=== PATIENT | female | born 1950 | race Caucasian/White ===

== ENCOUNTER 2023-02-24 15:54 | Inpatient (IN) ==
--- NOTE | 2023-02-24 17:30 | XRay Report ---
XR chest 1V not portable CLINICAL HISTORY: Chest pain, nonspecific COMPARISON STUDY: No previous studies for comparison. FINDINGS: No pneumothorax or pleural effusion is noted. Linear left basilar densities represent atele ctasis. Moderate cardiomegaly is noted. No evidence for pulmonary edema. Moderate to large hiatal her odette is present. IMPRESSION: 1. No acute cardiopulmonary findings. 2. Hiatal hernia. ACT 112: Negative or not required by law. Electronically signed by: Jagjit Cat M.D. 02/24/2023 5:29 PM
[2023-02-24 18:18] LABS: Basophils # (auto) 0.03 K/uL (0-0.2); Basophils % (auto) 0.3 %; Eosinophils # (auto) 0.03 K/uL (0-0.50); Eosinophils % (auto) 0.3 %; Hematocrit (blood only) 44.1 % (37.0-47.0); Hemoglobin 14.8 g/dl (12.0-16.0); Immature Granulocytes # (auto) 0.02 K/uL (0.01-0.20); Immature Granulocytes % (auto) 0.2 %; Lymphocytes # (auto) 2.45 K/uL (1.2-3.4); Lymphocytes % (auto) 28.5 %; Mean Corpuscular Hemoglobin 29.5 pg (25.0-34.0); Mean Corpuscular Hgb Conc 33.6 g/dL (32.0-36.0); Mean Corpuscular Volume 87.8 fL (80.0-100.0); Mean Platelet Volume 11.3 fL (9.4-12.4); Monocytes # (auto) 0.67 K/uL (0.11-0.59); Monocytes % (auto) 7.8 %; Neutrophils # (auto) 5.41 K/uL (1.40-6.50); Neutrophils % (auto) 62.9 %; Platelet Count 262 K/uL (130-400); RDW Coefficient of Variation 13.1 % (11.5-14.5); Red Blood Count 5.02 M/uL (4.20-5.40); White Blood Count 8.61 K/ul (4.8-10.8)
[2023-02-24 18:23] LABS: Albumin Globulin Ratio 1.5 (0.9-2); Albumin Level 4.5 gm/dl (3.4-5.0); BUN Creatinine Ratio 19.7 (10-20); Bilirubin,Total 0.4 mg/dl (0.2-1.0); Creatinine Clr Calc Pharmacy 64.5 ml/min; Est GFR (African American) 104.2 ml/min; Est GFR (Non-African American) 89.9 ml/min; Globulin 3.1 gm/dl (2.5-4.0); Potassium 3.8 mmol/L (3.5-5.1); Total Protein 7.6 gm/dl (6.0-8.3)
--- NOTE | 2023-02-24 18:25 | Emergency Department Note ---
Impression & Plan Chest pain ED Provider Note INFORMANT: Patient ED PROVIDER(S): Cedrick Guerra DO CHIEF COMPLAINT: Chest pressure PLAN: Disposition: Home Outpatient prescription management: none Discussion with: Cardiology, Dr. Grewal and the hospitalist MEDICAL DECISION MAKING: This is a 72-year-old female who presents to the ED with a chief complaint of chest pressure. The patient states that she has had the symptoms for a couple of weeks intermittently. She was at [facility] and admitted there for a short time and discharged to follow-up with a patient case manager in [place] at [facility]. She was thought to have angina and was discharged on nitroglycerin. The patient states that she sometimes gets discomfort at rest and sometimes with heavy exertion. Today she used the nitroglycerin given to her at her recent hospitalization twice because of chest discomfort. She states that it seems to help a little. She is concerned about angina. She does state that she has an appointment on March 14 with her [facility] patient case manager. She has taken some leisurely walks which did not elicit the discomfort. She has an appointment to see her PCP in about a week. The patient has additional complaints at this time. Exam is normal. Lungs are clear. Heart regular rate and rhythm. No pedal edema. No calf tenderness. No associated shortness of breath, fevers or recent illness. The patient's CBC did not show anemia or leukocytosis. Chemistry panel showed no electrolyte abnormality. Troponin was negative for myocardial infarction. Chest x-ray was negative for pneumonia. EKG shows a sinus rhythm without acute ischemic changes. Triage Nursing notes reviewed. Vital Signs: reviewed Prior /Outside records reviewed: none Differential diagnosis: The differential that was considered includes acute myocardial infarction, acute coronary syndrome Diagnostics, as interpreted by me: 12 lead ECG: NSR rate of 60. No ST elevation. No PVCs. Normal QTc. Cardiac Monitoring ordered: Sinus rhythm in the 60s. Medical decision rules: none Imaging studies: Chest x-ray: No acute disease Procedures: none. Critical care: none. HPI: See MDM above. PAST MEDICAL HISTORY: See Below PAST SURGICAL HISTORY: See Below SOCIAL HISTORY: See Below HOME MEDICATIONS: See Below ALLERGIES: See Below VITALS: See Below PHYSICAL EXAMINATION: See MDM for positive findings otherwise unremarkable. CONSTITUTIONAL/VITAL SIGNS: Reviewed GENERAL:done as appropriate INTEGUMENTARY: done as appropriate HEAD: done as appropriate EYES: done as appropriate RESPIRATORY: done as appropriate CARDIOVASCULAR:done as appropriate GI/ABDOMEN:done as appropriate EXTREMITIES: done as appropriate NEUROLOGICAL: done as appropriate PSYCHIATRIC:done as appropriate MUSCULOSKELETAL:done as appropriate TRIAGE NURSING DOCUMENTATION REVIEWED. Past Med/Surg History Social History Feels Safe at Home: Yes Results & Data (ED) Vital Signs Vital Signs - 24 hr 02/24/23 15:57 02/24/23 17:49 02/24/23 17:57 Temperature 36.8 C Temperature Source Temporal Artery Scan Pulse Rate 71 60 56 L Respiratory Rate 18 18 Blood Pressure 174/72 H 180/71 H Blood Pressure Mean 106 107 Pulse Oximetry 98 97 Oxygen Delivery Method Room Air Sepsis Recent Fever Within 48 Hours No Sepsis New/Unexplained Change in Mental Status No Sepsis Action Taken by Nursing No Action Required Laboratory Data 02/24/23 17:52 02/24/23 17:52 Lab Results 02/24/23 02/24/23 02/24/23 Range/Units 17:52 17:52 17:52 WBC 8.61 (4.8-10.8) K/ul RBC 5.02 (4.20-5.40) M/uL Hgb 14.8 (12.0-16.0) g/dl Hct 44.1 (37.0-47.0) % MCV 87.8 (80.0-100.0) fL MCH 29.5 (25.0-34.0) pg MCHC 33.6 (32.0-36.0) g/dL RDW Std Deviation 42.0 (36.4-46.3) fL RDW Coeff of Luis 13.1 (11.5-14.5) % Plt Count 262 (130-400) K/uL MPV 11.3 (9.4-12.4) fL Immature Gran % (Auto) 0.2 % Neut % (Auto) 62.9 % Lymph % (Auto) 28.5 % Vilas % (Auto) 7.8 % Eos % (Auto) 0.3 % Baso % (Auto) 0.3 % Neut # (Auto) 5.41 (1.40-6.50) K/uL Lymph # (Auto) 2.45 (1.2-3.4) K/uL Vil[place] # (Auto) 0.67 H (0.11-0.59) K/uL Eos # (Auto) 0.03 (0-0.50) K/uL Baso # (Auto) 0.03 (0-0.2) K/uL Immature Gran # (Auto) 0.02 (0.01-0.20) K/uL PT 10.9 (9.0-12.0) Seconds INR 1.0 (0.9-1.1) APTT 25.1 (21.0-31.0) Seconds PTT Ratio 0.9 Sodium 140 (136-145) mmol/L Potassium 3.8 (3.5-5.1) mmol/L Chloride 104 (98-107) mmol/L Carbon Dioxide 27 (21-32) mmol/L Anion Gap 9 (3-11) BUN 12 (6-23) mg/dl Creatinine 0.61 (0.6-1.2) mg/dl Est Cr Clr Drug Dosing 64.5 ml/min Est GFR ( Amer) 104.2 ml/min Est GFR (Non-Af Amer) 89.9 ml/min BUN/Creatinine Ratio 19.7 (10-20) Glucose 96 (70-99(Fasting)) mg/dl Calcium 10.0 (8.6-10.3) mg/dl Total Bilirubin 0.4 (0.2-1.0) mg/dl AST 12 L (13-39) U/L ALT 13 (7-52) U/L Alkaline Phosphatase 54 (34-104) U/L Troponin I High Sens 3.0 (0-14) pg/ml Total Protein 7.6 (6.0-8.3) gm/dl Albumin 4.5 (3.4-5.0) gm/dl Globulin 3.1 (2.5-4.0) gm/dl Albumin/Globulin Ratio 1.5 (0.9-2) Imaging Data Radiologist's Impression: Chest X-Ray 02/24/23 16:02 XR chest 1V not portable CLINICAL HISTORY: Chest pain, nonspecific COMPARISON STUDY: No previous studies for comparison. FINDINGS: No pneumothorax or pleural effusion is noted. Linear left basilar densities represent atelectasis. Moderate cardiomegaly is noted. No evidence for pulmonary edema. Moderate to large hiatal hernia is present. IMPRESSION: 1. No acute cardiopulmonary findings. 2. Hiatal hernia. ACT 112: Negative or not required by law. Electronically signed by: Jagjit Cat M.D. 02/24/2023 5:29 PM Discharge Plan Visit Data Chief Complaint: Chest Pain Stated Complaint: CHEST PAINS ED Provider: Cedrick Guerra Discharge Problem: Chest pain Patient Disposition: Being Evaluated by Hospitalist Forms Stand Alone Forms: [facility] Referrals Referrals: PCP,NO [Physician] -
[2023-02-24 18:36] LABS: Partial Thromboplastin Ratio 0.9; Partial Thromboplastin Time 25.1 Seconds (21.0-31.0); Prothrombin Time 10.9 Seconds (9.0-12.0)
[2023-02-24] MEDS ORDERED: NITROGLYCERIN SL 0.4 MG/TAB TAB SL PRN (22:02)
[2023-02-24] MEDS ORDERED: POLYETHYLENE (MIRALAX) 17 GM PACK PO PRN (22:02)
[2023-02-24] MEDS ORDERED: ACETAMINOPHEN 325 MG TAB PO PRN (22:02)
--- NOTE | 2023-02-24 22:44 | History and Physical Report ---
DATE OF ADMISSION: 02/24/2023. CHIEF COMPLAINT: Chest pain. HISTORY OF PRESENT ILLNESS: This is a 72-year-old female with past medical history significant for anemia, on iron tablets. The patient comes because of chest pain. The patient says it has been going on for some time. She was in a local small hospital, [facility], for chest pain. She was told that she might have angina and they tried to transfer, but could not get transferred, and she was given nitroglycerin during the hospitalization, she stayed for overnight in that hospital and discharged to follow up with PCP and electronics warfare technician. She has an appointment with PCP the coming Monday and also appointment with cardiology in the next few weeks, but the pain is coming on and off. Any exertion brings the pain and, with relaxing, the pain is going away, but today the pain was a little severe. She has taken 2 nitroglycerins today that helped the pain, but it was not long lasting. The pain was coming back, that is the reason she came to the hospital. Says pain is in the center of the chest about 5-6 in severity. No radiation, no nausea, no sweating, no dizziness, no shortness of breath. Denies any other complaints. No cough, no fevers. Appetite is okay. No difficulty swallowing. No orthopnea. No abdominal pain. Normal bowel and bladder movements. Denies any blood in stools or black stools, no hematuria, no swelling in the legs. Currently, resting comfortably and hemodynamically stable. The pain is somewhat less now. ALLERGIES: BANANA, MELON, TREE NUT. PAST MEDICAL HISTORY: As mentioned above. PAST SURGICAL HISTORY: She had a , colonoscopy, she states she had trigger finger release. MEDICATIONS: The patient is on vitamin D 50 mcg p.o. daily, ferrous sulfate 65 mg p.o. daily, Nitrostat p.r.n., zinc 50 mg p.o. daily, aspirin 81 mg p.o. daily. FAMILY HISTORY: Significant for mother had CABG in her 80s. Dad with a stroke. Mother and sister have angina. SOCIAL HISTORY: No smoking, no alcohol. . REVIEW OF SYSTEMS: As per HPI. Rest of review of systems is negative. PHYSICAL EXAMINATION: GENERAL: The patient is of moderate build, not in acute distress. VITAL SIGNS: Temperature 36.8, pulse 57, respiratory rate 18, blood pressure 150/84, oxygen 96% on room air. HEENT: Pupils equal, round and reactive to light. Oral mucosa moist. NECK: No JVD or neck masses. CARDIOVASCULAR: S1 and S2 heard. Regular rate and rhythm. No murmur, no gallop. RESPIRATORY SYSTEM: Normal AP diameter. No accessory muscle use. No wheezing or crackles. ABDOMEN: Soft, bowel sounds present, nontender, no distention. CENTRAL NERVOUS SYSTEM: Cranial nerves II-XII grossly intact, nonfocal. EXTREMITIES: No edema, no erythema. LABORATORY DATA: WBC 8.6, hemoglobin 14.8, hematocrit 44.1, platelets 262. PT 10.9, INR 1, APTT 25.1. Sodium 140, potassium 3.8, chloride 104, bicarbonate 27, BUN 12, creatinine 0.6, serum glucose 96, calcium 10, total bilirubin 0.4, AST 12, ALT 13, alkaline phosphatase 54. Troponin I high sensitivity 3. SARS-CoV-2 rapid test negative. IMAGING: Chest x-ray, no acute cardiopulmonary findings, hiatal hernia. ELECTROCARDIOGRAM: Normal sinus rhythm with sinus arrhythmia, rate of 61, no acute ST-T changes seen. ASSESSMENT AND PLAN: This is a 72-year-old female who presents with chest pain, questionable angina. 1. Chest pain, possible anginal chest pain, comes with exertion and subsides with relaxation and resting. Initial workup is negative. We will do serial cardiac enzymes, echocardiogram. Keep her n.p.o. after midnight. Consult cardiology in the a.m. for further recommendation. Closely monitor in the telemetry floor. We will also check lipid profile and HbA1c levels. 2. Deep venous thrombosis prophylaxis, sequential compression devices. DISPOSITION: Observation in the tele. Expect to discharge home and follow with family doctor. Job ID: [id number] [facility]
[2023-02-25 06:28] LABS: Anion Gap 9 (3-11); BUN Creatinine Ratio 20.3 (10-20); Blood Urea Nitrogen 12 mg/dl (6-23); Calcium 8.9 mg/dl (8.6-10.3); Carbon Dioxide 25 mmol/L (21-32); Chloride 108 mmol/L (98-107); Cholesterol 205 mg/dl (0-200); Est GFR (African American) 105.4 ml/min; Est GFR (Non-African American) 90.9 ml/min; Glucose 103 mg/dl (70-99(Fasting)); HDL Cholesterol 68 mg/dl; LDL Cholesterol Calculated 118 mg/dl; Magnesium 1.9 mg/dl (1.7-2.4); Potassium 3.9 mmol/L (3.5-5.1); Sodium 142 mmol/L (136-145); Triglycerides 93 mg/dl (0-150); VLDL Cholesterol 19 mg/dl (0-30)
[2023-02-25 06:29] LABS: Basophils # (auto) 0.03 K/uL (0-0.2); Basophils % (auto) 0.4 %; Eosinophils # (auto) 0.05 K/uL (0-0.50); Eosinophils % (auto) 0.7 %; Hematocrit (blood only) 39.1 % (37.0-47.0); Hemoglobin 13.4 g/dl (12.0-16.0); Immature Granulocytes # (auto) 0.02 K/uL (0.01-0.20); Immature Granulocytes % (auto) 0.3 %; Lymphocytes # (auto) 1.97 K/uL (1.2-3.4); Lymphocytes % (auto) 28.6 %; Mean Corpuscular Hemoglobin 29.7 pg (25.0-34.0); Mean Corpuscular Hgb Conc 34.3 g/dL (32.0-36.0); Mean Corpuscular Volume 86.7 fL (80.0-100.0); Mean Platelet Volume 11.5 fL (9.4-12.4); Monocytes # (auto) 0.62 K/uL (0.11-0.59); Platelet Count 237 K/uL (130-400); RDW Standard Deviation 40.7 fL (36.4-46.3); Red Blood Count 4.51 M/uL (4.20-5.40); White Blood Count 6.89 K/ul (4.8-10.8)
[2023-02-25 06:35] LABS: Troponin I High Sensitivity 4.2 pg/ml (0-14)
--- NOTE | 2023-02-25 07:36 | Electrocardiogram Report ---
Test Reason : Blood Pressure : / mmHG Vent. Rate : 061 BPM Atrial Rate : 061 BPM P-R Int : 176 ms QRS Dur : 078 ms QT Int : 430 ms P-R-T Axes : 060 011 062 degrees QTc Int : 432 ms Normal sinus rhythm with sinus arrhythmia Normal ECG No previous ECGs available Confirmed by Arturo Marrero ([id number]) on 02/25/2023 7:36:31 AM Referred By: REFERRED SELF Confirmed By:Rehan Marrero
[2023-02-25] MEDS: ASPIRIN 81 MG ECTAB PO SCH (08:47)
[2023-02-25] MEDS: CHOLECALCIFEROL 1,000 UNITS 25 MCG TAB PO SCH (08:47)
[2023-02-25] MEDS: ZINC SULFATE 220 MG CAPSULE PO SCH (08:47)
[2023-02-25] MEDS: FERROUS SULFATE 325 MG TAB PO SCH (08:47)
[2023-02-25 09:49] LABS: Estimated Average Glucose 117 mg/dl; Hemoglobin A1C 5.7 % (4.5-5.6)
--- NOTE | 2023-02-25 12:06 | Electrocardiogram Report ---
Test Reason : Blood Pressure : / mmHG Vent. Rate : 070 BPM Atrial Rate : 070 BPM P-R Int : 170 ms QRS Dur : 084 ms QT Int : 430 ms P-R-T Axes : 056 031 082 degrees QTc Int : 464 ms Normal sinus rhythm Normal ECG When compared with ECG of 24-FEB-2023 17:43, No significant change was found Confirmed by Arturo Marrero ([id number]) on 02/25/2023 12:06:41 PM Referred By: REFERRED SELF Confirmed By:Rehan Marrero
[2023-02-25 13:12] LABS: C Reactive Protein < 0.50 mg/dl (0-0.5)
--- NOTE | 2023-02-25 14:58 | Hospitalist Progress Note ---
Date of Service February 25, 2023 Assessment & Plan (1) Chest pain: (2) Pericardial effusion: Plan Patient is a 72-year-old female with no significant past medical history presents to the ED with exertional chest pain. Chest pain, likely due to angina EKG personally reviewed; normal sinus rhythm with no ST or T wave changes High-sensitivity troponin negative Echocardiogram shows EF of 65 to 70%; grade 1 diastolic dysfunction; small loculated anterior and right lateral pericardial effusion with some degree of organization -Discussed with cardiology; plan for stress test on Monday. Telemetry monitoring -Nitroglycerin as needed for chest pain. -Also started on aspirin. Prediabetes: -HbA1c of 5.7% Dietary counseling DVT prophylaxisSCDs Full code Dispofrom home; discharge after possible stress test on Monday. Admission and Anticipated Discharge Date Admission Date: February 24, 2023 Subjective Patient seen and examined at bedside. She is comfortably sitting up on the bed; not in any distress. She denies any chest pain at present time. Review of Systems Review of Systems: All systems reviewed & are unremarkable except as noted in Subjective Physical Exam Physical Exam: Constitutional: WD/WN, vitals as above, NAD, sitting up in bed, pleasant, conversing easily Respiratory: normal respiratory effort, lungs clear to auscultation, no wheeze, rales, rhonchi. Normal insp/exp effort, no accessory muscle use Cardiovascular: RRR, no murmur, no edema Vessels: no JVD or carotid bruit Chest: normal inspection of chest Abdomen: normal bowel sounds, soft, nontender, no hepatosplenomegaly Musculoskeletal: no cyanosis or clubbing, extremities motor strength 5/5 Skin: no rashes, warm and dry normal turgor Neurologic: PERRL, EOMI, accommodation nl, no face palsy, no dysarthria CN's II- XI intact bilaterally and moves all extremities Psychiatric: A+Ox3, euthymic affect Lymphatic: no cervical or axillary lymphadenopathy : deferred Results & Data Results & Data Vital Signs (Past 12 Hours) Vital Signs Temp Pulse Pulse Resp BP Pulse Ox O2 Del Method 02/25/23 11:39 36.8 C 65 18 114/63 98 Room Air 02/25/23 08:00 61 02/25/23 08:02 36.6 C 70 16 133/73 96 Room Air 02/25/23 04:36 67 02/25/23 03:40 36.6 C 65 18 122/75 98 Room Air Laboratory Results Laboratory Results WBC 6.89 K/ul (4.8-10.8) 02/25/23 05:26 RBC 4.51 M/uL (4.20-5.40) 02/25/23 05:26 Hgb 13.4 g/dl (12.0-16.0) 02/25/23 05:26 Hct 39.1 % (37.0-47.0) 02/25/23 05:26 MCV 86.7 fL (80.0-100.0) 02/25/23 05:26 MCH 29.7 pg (25.0-34.0) 02/25/23 05:26 MCHC 34.3 g/dL (32.0-36.0) 02/25/23 05:26 RDW Std Deviation 40.7 fL (36.4-46.3) 02/25/23 05:26 RDW Coeff of Luis 13.0 % (11.5-14.5) 02/25/23 05:26 Plt Count 237 K/uL (130-400) 02/25/23 05:26 MPV 11.5 fL (9.4-12.4) 02/25/23 05:26 Immature Gran % (Auto) 0.3 % 02/25/23 05:26 Neut % (Auto) 61.0 % 02/25/23 05:26 Lymph % (Auto) 28.6 % 02/25/23 05:26 Rawlins % (Auto) 9.0 % 02/25/23 05:26 Eos % (Auto) 0.7 % 02/25/23 05:26 Baso % (Auto) 0.4 % 02/25/23 05:26 Neut # (Auto) 4.20 K/uL (1.40-6.50) 02/25/23 05:26 Lymph # (Auto) 1.97 K/uL (1.2-3.4) 02/25/23 05:26 [place] # (Auto) 0.62 K/uL (0.11-0.59) H 02/25/23 05:26 Eos # (Auto) 0.05 K/uL (0-0.50) 02/25/23 05:26 Baso # (Auto) 0.03 K/uL (0-0.2) 02/25/23 05:26 Immature Gran # (Auto) 0.02 K/uL (0.01-0.20) 02/25/23 05:26 ESR 15 mm/hr (0-30) 02/25/23 05:26 PT 10.9 Seconds (9.0-12.0) 02/24/23 17:52 INR 1.0 (0.9-1.1) 02/24/23 17:52 APTT 25.1 Seconds (21.0-31.0) 02/24/23 17:52 PTT Ratio 0.9 02/24/23 17:52 Sodium 142 mmol/L (136-145) 02/25/23 05:26 Potassium 3.9 mmol/L (3.5-5.1) 02/25/23 05:26 Chloride 108 mmol/L (98-107) H 02/25/23 05:26 Carbon Dioxide 25 mmol/L (21-32) 02/25/23 05:26 Anion Gap 9 (3-11) 02/25/23 05:26 BUN 12 mg/dl (6-23) 02/25/23 05:26 Creatinine 0.59 mg/dl (0.6-1.2) L 02/25/23 05:26 Est Cr Clr Drug Dosing 66.0 ml/min 02/25/23 05:26 Est GFR ( Amer) 105.4 ml/min 02/25/23 05:26 Est GFR (Non-Af Amer) 90.9 ml/min 02/25/23 05:26 BUN/Creatinine Ratio 20.3 (10-20) H 02/25/23 05:26 Glucose 103 mg/dl (70-99(Fasting)) H 02/25/23 05:26 Estimat Average Glucose 117 mg/dl 02/25/23 05:26 Hemoglobin A1c 5.7 % (4.5-5.6) H 02/25/23 05:26 Calcium 8.9 mg/dl (8.6-10.3) 02/25/23 05:26 Magnesium 1.9 mg/dl (1.7-2.4) 02/25/23 05:26 Total Bilirubin 0.4 mg/dl (0.2-1.0) 02/24/23 17:52 AST 12 U/L (13-39) L 02/24/23 17:52 ALT 13 U/L (7-52) 02/24/23 17:52 Alkaline Phosphatase 54 U/L (34-104) 02/24/23 17:52 Troponin I High Sens 2.9 pg/ml (0-14) 02/25/23 11:23 C-Reactive Protein < 0.50 mg/dl (0-0.5) 02/25/23 05:26 Total Protein 7.6 gm/dl (6.0-8.3) 02/24/23 17:52 Albumin 4.5 gm/dl (3.4-5.0) 02/24/23 17:52 Globulin 3.1 gm/dl (2.5-4.0) 02/24/23 17:52 Albumin/Globulin Ratio 1.5 (0.9-2) 02/24/23 17:52 Triglycerides 93 mg/dl (0-150) 02/25/23 05:26 Cholesterol 205 mg/dl (0-200) H 02/25/23 05:26 LDL Cholesterol, Calc 118 mg/dl 02/25/23 05:26 VLDL Cholesterol, Calc 19 mg/dl (0-30) 02/25/23 05:26 HDL Cholesterol 68 mg/dl 02/25/23 05:26 Cholesterol/HDL Ratio 3.0 (0-5) 02/25/23 05:26 SARS-CoV-2, RNA, NAAT NEGATIVE (NEGATIVE) 02/24/23 19:30 Impressions Chest X-Ray 02/24/23 16:02 XR chest 1V not portable CLINICAL HISTORY: Chest pain, nonspecific COMPARISON STUDY: No previous studies for comparison. FINDINGS: No pneumothorax or pleural effusion is noted. Linear left basilar densities represent atelectasis. Moderate cardiomegaly is noted. No evidence for pulmonary edema. Moderate to large hiatal hernia is present. IMPRESSION: 1. No acute cardiopulmonary findings. 2. Hiatal hernia. ACT 112: Negative or not required by law. Electronically signed by: Jagjit Cat M.D. 02/24/2023 5:29 PM
--- NOTE | 2023-02-25 17:22 | Cardiology Consultation ---
Date of Consultation February 25, 2023 Assessment & Plan (1) Chest pain: - Patient with chest discomfort, characteristics of which are concerning for angina. Serial EKG tracings negative for ischemia, 3 high-sensitivity troponin levels within normal limits. Echocardiogram revealing no regional wall motion abnormalities. A small loculated anterior pericardial effusion was noted, however inflammatory markers (CRP, ESR) within normal limits, and patient does not have symptoms suggestive of pericarditis. -Continue aspirin. Add atorvastatin 10 mg given LDL cholesterol 180 mg/dL, pending further assessment. -Further work-up to be determined based on hospital progress with regards to stress testing invasive angiography. History of Present Illness Attending Physician: Van Mcclellan MD History of Present Illness Nasrin Farah is a 72-year-old female seen in cardiology consultation per the request of Dr. Zamora who for the evaluation of chest discomfort. Patient notes initial concerns dating back to September, when she presented to the emergency department at [facility] with chest discomfort. She was seen in cardiology follow-up as an outpatient at [facility] , and it was felt that her symptoms were suggestive of musculoskeletal chest wall pain at that time. The patient notes feeling improved up until about 2 weeks ago when she developed waxing and waning chest discomfort. She presented to the emergency department in [facility] on 02/13/2023. I do not have the records of that admission however she describes having had negative work-up and was discharged with a short-term prescription for nitroglycerin. She states in the meantime she has had several episodes of chest discomfort that she describes as a tight or pres sure sensation. Most recent of which occurred yesterday. Since discharge from [place] she has taken 4 total sublingual nitroglycerin, 2 of which yesterday with subjective palliation of her symptoms. At present she is comfortable in the hospital. Telemetry reveals a 20 beat run of narrow complex tachycardia observed 02/25/23 at 2320. Social History: Patient is and lives with her spouse. Non-smoker Family History: Mother with history of atrial fibrillation and had CABG in her 80s Father with history of stroke Her description her brother had a heart catheterization what sounds like a percutaneous coronary intervention Allergies Allergy/AdvReac Type Severity Reaction Status Date / Time banana Allergy itchy Verified 02/24/23 19:50 throat & ears melon Allergy itchy Verified 02/24/23 19:50 throat & ears tree nut Allergy Itchy Verified 02/24/23 19:50 throat & ears Home Medications Medication Instructions Recorded Confirmed Type Zinc Tab 50 mg PO DAILY 02/24/23 02/24/23 History cholecalciferol (vitamin D3) 50 50 mcg PO DAILY 02/24/23 02/24/23 History mcg (2,000 unit) capsule (Vitamin D3) ferrous sulfate 325 mg (65 mg 325 mg PO DAILY 02/24/23 02/24/23 History iron) tablet (iron) ibuprofen 200 mg tablet (Advil) 400 mg PO Q6H PRN Pain 02/24/23 02/24/23 History nitroglycerin 0.4 mg sublingual 0.4 mg sublingual DIRECTED PRN 02/24/23 02/24/23 History tablet (Nitrostat) Chest Pain Patient History Social History Smoking Status: Never smoker Hx Substance Use: No Preferred Language: Mongolian Communication Ability: Effective Fuel Cell Binder Required: No Beliefs That Will Affect Care: None Current Living Situation: Spouse Current Living Situation Comment: home with Other Information That Helps Us Care for You: No Feels Safe at Home: Yes Safety Concerns: Feels Safe At This Time Assistive Devices: Glasses and Hospital Bed Review of Systems Review of Systems: All systems reviewed & are unremarkable except as noted in HPI & below Physical Exam Constitutional: WD/WN, vitals as above Respiratory: normal respiratory effort, lungs clear to auscultation Cardiovascular: RRR, no murmur, no edema Gastrointestinal (Abdomen): normal bowel sounds, soft, nontender, no hepatosplenomegaly Neurologic: PERRL, EOMI, accommodation nl, no face palsy, no dysarthria Results & Data Vital Signs (Past 12 Hours) Vital Signs Temp Pulse Pulse Resp BP Pulse Ox O2 Del Method 02/25/23 15:58 36.8 C 63 17 108/66 98 Room Air 02/25/23 11:39 36.8 C 65 18 114/63 98 Room Air 02/25/23 08:00 61 02/25/23 08:02 36.6 C 70 16 133/73 96 Room Air Laboratory Results Cardiac Enzymes 02/24/23 02/25/23 02/25/23 Range/Units 17:52 05:26 11:23 AST 12 L (13-39) U/L Troponin I High Sens 3.0 4.2 2.9 (0-14) pg/ml Coagulation 02/24/23 Range/Units 17:52 PT 10.9 (9.0-12.0) Seconds APTT 25.1 (21.0-31.0) Seconds Lipids 02/25/23 Range/Units 05:26 Triglycerides 93 (0-150) mg/dl Cholesterol 205 H (0-200) mg/dl HDL Cholesterol 68 mg/dl Cholesterol/HDL Ratio 3.0 (0-5) CBC 02/24/23 02/25/23 Range/Units 17:52 05:26 WBC 8.61 6.89 (4.8-10.8) K/ul RBC 5.02 4.51 (4.20-5.40) M/uL Hgb 14.8 13.4 (12.0-16.0) g/dl Hct 44.1 39.1 (37.0-47.0) % Plt Count 262 237 (130-400) K/uL Neut # (Auto) 5.41 4.20 (1.40-6.50) K/uL Lymph # (Auto) 2.45 1.97 (1.2-3.4) K/uL [place] # (Auto) 0.67 H 0.62 H (0.11-0.59) K/uL Eos # (Auto) 0.03 0.05 (0-0.50) K/uL Baso # (Auto) 0.03 0.03 (0-0.2) K/uL Comprehensive Metabolic Panel 02/24/23 02/25/23 Range/Units 17:52 05:26 Sodium 140 142 (136-145) mmol/L Potassium 3.8 3.9 (3.5-5.1) mmol/L Chloride 104 108 H (98-107) mmol/L Carbon Dioxide 27 25 (21-32) mmol/L BUN 12 12 (6-23) mg/dl Creatinine 0.61 0.59 L (0.6-1.2) mg/dl Glucose 96 103 H (70-99(Fasting)) mg/dl Calcium 10.0 8.9 (8.6-10.3) mg/dl AST 12 L (13-39) U/L ALT 13 (7-52) U/L Alkaline Phosphatase 54 (34-104) U/L Total Protein 7.6 (6.0-8.3) gm/dl Albumin 4.5 (3.4-5.0) gm/dl C-reactive protein and erythrocyte sedimentation rate drawn 02/25/23 within the normal limits Diagnostic Findings EKG performed 02/24/2023 at 1743: Normal sinus rhythm at 61 bpm with sinus arrhythmia, normal ST segments. 3 subsequent follow-up tracings have been performed without significant change. Transthoracic echocardiogram performed today and interpreted independently: The basal inferoseptum is thickened and consistent with sigmoid septum Normal left ventricular wall motion, LVEF 65 to 70%, there is a small loculated anterior right lateral pericardial effusion with some degree of organization suggestive of possible chronicity. Tamponade is absent. Chest x-ray: No acute cardiopulmonary process
[2023-02-25] MEDS: ATORVASTATIN 10 MG TAB PO SCH (18:37)
--- NOTE | 2023-02-26 07:15 | Electrocardiogram Report ---
Test Reason : Blood Pressure : / mmHG Vent. Rate : 064 BPM Atrial Rate : 064 BPM P-R Int : 162 ms QRS Dur : 082 ms QT Int : 442 ms P-R-T Axes : 034 009 081 degrees QTc Int : 455 ms Normal sinus rhythm Normal ECG When compared with ECG of 25-FEB-2023 06:15, No significant change was found Confirmed by Arturo Marrero ([id number]) on 02/26/2023 7:14:56 AM Referred By: REFERRED SELF Confirmed By:Rehan Marrero
--- NOTE | 2023-02-26 07:22 | Electrocardiogram Report ---
Test Reason : Blood Pressure : / mmHG Vent. Rate : 070 BPM Atrial Rate : 070 BPM P-R Int : 166 ms QRS Dur : 080 ms QT Int : 436 ms P-R-T Axes : 046 027 085 degrees QTc Int : 470 ms Normal sinus rhythm Normal ECG When compared with ECG of 25-FEB-2023 08:56, (unconfirmed) No significant change was found Confirmed by Arturo Marrero ([id number]) on 02/26/2023 7:21:42 AM Referred By: REFERRED SELF Confirmed By:Rehan Marrero
[2023-02-26] MEDS: ZINC SULFATE 220 MG CAPSULE PO SCH (10:48)
[2023-02-26] MEDS: ASPIRIN 81 MG ECTAB PO SCH (10:48)
[2023-02-26] MEDS: FERROUS SULFATE 325 MG TAB PO SCH (10:48)
[2023-02-26] MEDS: CHOLECALCIFEROL 1,000 UNITS 25 MCG TAB PO SCH (10:48)
--- NOTE | 2023-02-26 10:52 | Cardiology Progress Note ---
Date of Service February 26, 2023 Assessment & Plan (1) Chest pain: Plan: - Patient with chest discomfort, characteristics of which are concerning for angina. Serial EKG tracings negative for ischemia, 3 high-sensitivity troponin levels within normal limits. Resting echocardiogram revealing no regional wall motion abnormalities. A small loculated anterior pericardial effusion was noted, however inflammatory markers (CRP, ESR) within normal limits, and patient does not have symptoms suggestive of pericarditis. -Patient underwent an exercise stress echocardiogram this morning supervised personally by the undersigned. Patient achieved a moderate to high workload, 7 METS on a Adebayo protocol. Presenting symptoms of chest discomfort were not reproduced with exercise. No EKG or echocardiographic evidence of inducible ischemia. -Patient stable from a cardiac perspective for discharge, as stress test results suggest a low risk of hemodynamically significant coronary heart disease. -I think would be reasonable for her to continue aspirin 81 mg daily. Atorvastatin can be discontinued at discharge. -Patient already has a follow-up visit with her primary care provider this week and she was encouraged to keep that appointment. She already has a cardiology appointment with Jluis Lopes in March. I counseled her that I think would be reasonable for her to keep her cardiology follow-up appointment in March in [place], see me or one of my colleagues at [facility] or proceed with follow up with primary care provider and return to cardiology on an as-needed basis should future concerns arise. She is going to think about these options. Admission and Anticipated Discharge Date Admission Date: February 25, 2023 Subjective Patient seen in cardiology follow-up chest discomfort prior to, during, and after stress echocardiogram today. At the time of my assessment in her room, [id number], this morning, she noted feeling well. She had rare occasional vague chest discomfort not associated with aerobic exertion. She had been walking in the hallway on the unit with no symptoms while walking. Telemetry revealed sinus rhythm in the 70s. Review of Systems Review of Systems: All systems reviewed & are unremarkable except as noted in HPI & below Physical Exam Constitutional: WD/WN, vitals as above Respiratory: normal respiratory effort, lungs clear to auscultation Cardiovascular: RRR, no murmur, no edema Gastrointestinal (Abdomen): normal bowel sounds, soft, nontender, no hepatosplenomegaly Neurologic: PERRL, EOMI, accommodation nl, no face palsy, no dysarthria Results & Data Vital Signs (Past 12 Hours) Vital Signs Temp Pulse Pulse Resp BP Pulse Ox O2 Del Method 02/26/23 08:00 56 L 02/26/23 07:43 36.7 C 70 16 123/69 97 Room Air 02/26/23 03:31 36.4 C L 57 L 18 108/69 97 Room Air 02/26/23 01:06 64 02/25/23 22:57 36.9 C 60 18 117/67 94 Room Air Diagnostic Findings ECG performed today 02/26/2023 at 6:28 AM and interpreted independently: Sinus rhythm at 70 bpm. Normal ECG. Compared to the previous, no significant change.
[2023-02-26] MEDS: ATORVASTATIN 10 MG TAB PO SCH (11:11)
--- NOTE | 2023-02-26 13:18 | Discharge Summary ---
Date of Service February 26, 2023 Admission HPI Per Admitting Provider This is a 72-year-old female with past medical history significant for anemia, on iron tablets. The patient comes because of chest pain. The patient says it has been going on for some time. She was in a local small hospital, [facility], for chest pain. She was told that she might have angina and they tried to transfer, but could not get transferred, and she was given nitroglycerin during the hospitalization, she stayed for overnight in that hospital and discharged to follow up with PCP and supervisor liquefaction. She has an appointment with PCP the coming Monday and also appointment with cardiology in the next few weeks, but the pain is coming on and off. Any exertion brings the pain and, with relaxing, the pain is going away, but today the pain was a little severe. She has taken 2 nitroglycerins today that helped the pain, but it was not long lasting. The pain was coming back, that is the reason she came to the hospital. Says pain is in the center of the chest about 5-6 in severity. No radiation, no nausea, no sweating, no dizziness, no shortness of breath. Denies any other complaints. No cough, no fevers. Appetite is okay. No difficulty swallowing. No orthopnea. No abdominal pain. Normal bowel and bladder movements. Denies any blood in stools or black stools, no hematuria, no swelling in the legs. Currently, resting comfortably and hemodynamically stable. The pain is somewhat less now. Admission Exam Per Admitting Provider GENERAL: The patient is of moderate build, not in acute distress. VITAL SIGNS: Temperature 36.8, pulse 57, respiratory rate 18, blood pressure 150/84, oxygen 96% on room air. HEENT: Pupils equal, round and reactive to light. Oral mucosa moist. NECK: No JVD or neck masses. CARDIOVASCULAR: S1 and S2 heard. Regular rate and rhythm. No murmur, no gallop. RESPIRATORY SYSTEM: Normal AP diameter. No accessory muscle use. No wheezing or crackles. ABDOMEN: Soft, bowel sounds present, nontender, no distention. CENTRAL NERVOUS SYSTEM: Cranial nerves II-XII grossly intact, nonfocal. EXTREMITIES: No edema, no erythema. Principal Diagnosis Chest pain, ACS rule out Discharge Exam Constitutional: WD/WN, vitals as above, NAD, sitting up in bed, pleasant, conversing easily Respiratory: normal respiratory effort, lungs clear to auscultation, no wheeze, rales, rhonchi. Normal insp/exp effort, no accessory muscle use Cardiovascular: RRR, no murmur, no edema Vessels: no JVD or carotid bruit Chest: normal inspection of chest Abdomen: normal bowel sounds, soft, nontender, no hepatosplenomegaly Musculoskeletal: no cyanosis or clubbing, extremities motor strength 5/5 Skin: no rashes, warm and dry normal turgor Neurologic: PERRL, EOMI, accommodation nl, no face palsy, no dysarthria CN's II- XI intact bilaterally and moves all extremities Psychiatric: A+Ox3, euthymic affect Lymphatic: no cervical or axillary lymphadenopathy : deferred Discharge Data Allergies Allergy/AdvReac Type Severity Reaction Status Date / Time banana Allergy itchy Verified 02/24/23 19:50 throat & ears melon Allergy itchy Verified 02/24/23 19:50 throat & ears tree nut Allergy Itchy Verified 02/24/23 19:50 throat & ears Consultations 02/24/23 19:19 ED Decision to Admit Stat 02/25/23 08:00 Consult Cardiology Routine Hospital Course (1) Chest pain: (2) Pericardial effusion: Plan Patient is a 72-year-old female with no significant past medical history presents to the ED with exertional chest pain for several days. Chest pain, ACS ruled out. EKG personally reviewed; normal sinus rhythm with no ST or T wave changes High-sensitivity troponin negative Echocardiogram shows EF of 65 to 70%; grade 1 diastolic dysfunction; small loculated anterior and right lateral pericardial effusion with some degree of organization Patient underwent exercise stress echocardiogram; no EKG or echocardiographic evidence of inducible ischemia. Cardiology recommended the patient to be started on aspirin. Patient was discharged home with instruction to follow-up with her primary care doctor. Total Time Total Time Spent Total Time Spent (In Minutes): 35 Total Time Includes: Examination of the Patient, Discharge Planning, Medication Reconciliation, Communication With Other Providers and Other Discharge Plan Discharge Items Patient Disposition: Home - Self-Care Reason For Visit: CHEST PAIN Discharge Diagnosis: Chest pain, ACS ruled out Activity: Resume your previous activity Non-emergency contact: Primary Care Provider Call non-emergency contact if: you have any medication questions and your symptoms worsen Follow-up/Referrals: Lorraine Castro MD [Primary Care Provider] - Diet: Regular Addtl Attending Provider Instructions: You were admitted to the hospital with chest pain. Cardiology saw you during the hospital; you underwent stress test which was normal. You are prescribed aspirin 81 mg to be taken once daily. Primary care follow-up will be set up for you for sometime next week. Pending Studies at Discharge: No Stand-Alone Forms: My [facility], Smoking Cessation Medications and DC Order Prescriptions: New aspirin 81 mg Tablet,Delayed Release (Dr/Ec) 81 mg PO QAM Qty: 30 0RF Continued ferrous sulfate [iron] 325 mg (65 mg iron) Tablet 325 mg PO DAILY nitroglycerin [Nitrostat] 0.4 mg Tablet, Sublingual 0.4 mg sublingual DIRECTED PRN (Reason: Chest Pain) cholecalciferol (vitamin D3) [Vitamin D3] 50 mcg (2,000 unit) Capsule 50 mcg PO DAILY Zinc Tab 50 mg PO DAILY Discontinued ibuprofen [Advil] 200 mg Tablet 400 mg PO Q6H PRN (Reason: Pain) Discharge Orders: Discharge Order (Routine); Ordered 02/26/23 Ordered By: Van Mcclellan Admission Data Admit Date/Time: 02/25/23 15:28 Attending Provider: Van Mcclellan Admit Provider: Babar Law Primary Care Provider: Lorraine Castro Other Providers: Babar Law ; Alfred Sung Other Interventions: Discharge Summary Assessment (RN) Last Done: 02/26/23 11:16
== END 2023-02-26 13:19 | disposition home or self-care (01) | DRG 316 ==
LOC: ED 15:54 → 4W 15:54